=== PATIENT | male | born 1955 | race Caucasian/White ===

== ENCOUNTER 2016-04-01 18:02 | Emergency (ER) | payer OTHER ==
[~2016-04-01] VITALS: Wt 100.0 kg
[2016-04-01] MEDS ORDERED: FLUORESCEIN STRIP LEFT EYE ONE (19:30)
[2016-04-01] MEDS ORDERED: MINE3.5O30 LEFT EYE (19:51)
--- NOTE | 2016-04-01 19:59 | ERD ---
ER Documentation Chief Complaint Date/Time DATE: 04/01/16 TIME: 19:55 Chief Complaint LEFT EYE SUBCONJUNCTIVAL HEMMORHAGE, NO TRAUMA NOTED. HPI This 52-year-old male resents with some left eye redness for the last day. He was possibly working around its should any but denies any specific incident or had onset of symptoms. Denies any pain, visual changes. He is referred respiratory doctor for evaluation of some conjunctival hemorrhage some possible additional abnormalities. ROS All systems reviewed and are negative except as per history of present illness. Medications Home Meds Active Scripts Mineral Oil/Petrolatum,White (ARTIFICIAL TEARS EYE OINT) 3.5 Gm Oint...g., 1 APPLIC LEFT EYE QID Y for DRY EYES for 10 Days, #1 EA Prov:GOMEZ BLACKMAN MD 04/01/16 Allergies Allergies: Coded Allergies: Tetracycline (Verified Allergy, Mild, 06/07/09) PMhx/Soc Medical and Surgical Hx: pt denies Surgical Hx History of Surgery: No Anesthesia Reaction: No Hx Neurological Disorder: No Hx Respiratory Disorders: No Hx Cardiac Disorders: Yes (HTN, HIGH CHOL.) Hx Psychiatric Problems: No Hx Miscellaneous Medical Probl: Yes (DIABETES.) Hx Alcohol Use: Yes (DURING KITTY.) Hx Substance Use: No Hx Tobacco Use: No Smoking Status: Never smoker Physical Exam Vitals Vital Signs Date Time Temp Pulse Resp B/P Pulse Ox O2 Delivery O2 Flow Rate FiO2 04/01/16 18:10 98.0 98 20 153/81 95 Physical Exam Const: [] Alert, not ill-appearing. Head: Atraumatic Eyes: There is a subconjunctival hemorrhage extending from 6:00 to 9:00 of The left eye. There is a Small central hematoma. there is no ulcerations or dendritic lesions on fluorescein exam. The abnormality noted by the primary doctor Marshall to be possibly a small pingueculum at the border of the hemorrhage Anterior chambers appear normal and eyes are PERRL. Visual acuity shows no acute abnormalities bilaterally. There is no appreciable foreign body. ENT: Normal External Ears, Nose and Mouth. Neck: Full range of motion..~ No meningismus. Resp: Clear to auscultation bilaterally Cardio: Regular rate and rhythm, no murmurs Abd: Soft, non tender, non distended. Normal bowel sounds Skin: No petechiae or rashes Back: No midline or flank tenderness Ext: No cyanosis, or edema Neur: Awake and alert Psych: Normal Mood and Affect Results 24 hrs Current Medications Medications (Trade) Dose Ordered Sig/Farooq Route PRN Reason Start Time Stop Time Status Last Admin Dose Admin Fluorescein Sodium (Elsgo-S-Cakfl) 1 strip ONCE ONCE LEFT EYE 04/01/16 19:30 04/01/16 19:31 DC Procedures/MDM This patient appears to have a left eye subconjunctival hemorrhage without evidence to suggest foreign body, injured lesions, ulcerations throat division. Abnormalities. To be a small hematoma central to the subconjunctival hemorrhage and likely pingueculum.. Patient will referred for further evaluation to the chief psychologist or should return to ER. Visual changes, fevers, new or worsening symptoms. Departure Diagnosis: Primary Impression: Subconjunctival hemorrhage Laterality: left Qualified Code: H11.32 - Subconjunctival hemorrhage, left Condition: Stable Patient Instructions: Subconjunctival Hemorrhage Referrals: MERGED WITH [facility] Hours: Sun - Sun 9:00 AM - 5:00 PM Additional Instructions: VA AL SPECIALISTA ESTA SEMANA PARA MAS EVALUACION. NO PUDE RJ UN COSA PELIGROSA / ULCERA, PROBLEMAS [place]ISTA. No foreign body identified and no ulceration and no abnormalities of vision. Likely broken blood vessel. See chief psychologist this week for further evaluation or return for visual changes, fevers, new or worsening symptoms. GOMEZ BLACKMAN MD Apr 01, 2016 19:59
== END 2016-04-01 20:12 | disposition home or self-care (01) ==
LOC: FTE 18:02
DX: H11.32 Conjunctival hemorrhage, left eye (principal); I10 Essential (primary) hypertension; E11.9 Type 2 diabetes mellitus without complications
CPT/HCPCS: Z7502; Z7610; 99283